=== PATIENT | male | born 1990 | race African-American/Black ===

== ENCOUNTER 2017-06-09 18:20 | Observation (INO) | payer OTHER ==
[~2017-06-09] VITALS: Ht 167.6 cm; Wt 71.7 kg
[2017-06-09 18:50] LABS: HEMATOCRIT 45.9 % (38.0-50.0); MCH 28.7 PG (29.0-34.0); MCHC 34.4 G/DL (30.0-36.0); MCV 83.3 FL (86-99); MEAN PLAT.VOLUME 8.7 uM^3 (9.0-12.4); PLATELET COUNT 209 K/uL (156-360); RBC DIS.WIDTH-CV 11.8 % (11.8-14.6); RBC DIS.WIDTH-SD 35.7 % (39-53); RED BLOOD COUNT 5.51 M/uL (4.00-5.50)
[2017-06-09 18:58] LABS: CHLORIDE 105 mEq/L (99-109); POTASSIUM 3.4 mEq/L (3.7-5.4); SODIUM 140 mEq/L (136-147)
[2017-06-09 18:59] LABS: GLUCOSE 132 mg/dL (70-99)
[2017-06-09 19:01] LABS: ANION GAP 14 MEQ/L (2-14)
[2017-06-09 19:04] LABS: UREA NITROGEN (BUN) 11 mg/dL (9-23)
[2017-06-09 19:05] LABS: GFR ESTIMATE (CALCULATED) > 59 mL/min/
[2017-06-09 19:12] LABS: TROP-I INTERPRETATION NEGATIVE; TROPONIN-I < 0.01 ng/mL (0.0-0.30)
[2017-06-09 20:17] LABS: ERTH.SED.RATE 9 MM/HR (0-15)
[2017-06-10 01:55] VITALS: BP 117/60
[2017-06-10 02:19] LABS: D-DIMER ELISA < 150.00 ng/mLDDU (<230)
[2017-06-10 04:13] LABS: ADD MIUA? NO; BILIRUBIN NEGATIVE; BLOOD NEGATIVE; COLOR STRAW ((YELLOW)); GLUCOSE (STRIP) >=500; KETONES NEGATIVE; LEUKOCYTES NEGATIVE; NITRITE NEGATIVE; PROTEIN (STRIP) NEGATIVE; SPECIFIC GRAVITY 1.013 (1.000-1.030); UROBILINOGEN 0.2 MG/DL (0.2-1.0)
[2017-06-10 04:22] LABS: AMPHETAMINES QUANT VALUE 0 NG/ML; BARBITUATES QUANT VALUE 0 NG/ML; BENZODIAZEPINES QUANT VALUE 0 NG/ML; BENZODIAZEPINES, URINE SCREEN Negative (200 ng/mL); MARIJUANA QUANT VALUE 0 NG/ML; OPIATES QUANTITATIVE VALUE 0 NG/ML; PHENCYCLIDINE QUANT VALUE 0 NG/ML
[2017-06-10 06:23] LABS: UCUL ADDED? NO
[2017-06-10 06:43] LABS: TROP-I INTERPRETATION NEGATIVE; TROPONIN-I 0.01 ng/mL (0.0-0.30)
[2017-06-10 08:42] VITALS: BP 116/59
[2017-06-10] MEDS ORDERED: FAMOTIDINE20 MG PO (13:08)
[2017-06-10] MEDS ORDERED: INDOCIN25 MG PO (13:08)
[2017-06-10 13:24] LABS: TROP-I INTERPRETATION NEGATIVE; TROPONIN-I < 0.01 ng/mL (0.0-0.30)
== END 2017-06-10 15:16 ==
LOC: EME 18:20 → 5WEST 23:40 → EDOF 23:40 → ENRESERV 23:41 → 5WEST 06-10 01:33
PROVIDERS: Emergency Medicine; Hospitalist; Internal Medicine
DX: R07.9 Chest pain, unspecified (principal); I31.9 Disease of pericardium, unspecified; R74.0 Nonspecific elevation of levels of transaminase and lactic acid dehydrogenase [LDH]; Z85.6 Personal history of leukemia; Z92.21 Personal history of antineoplastic chemotherapy; F17.210 Nicotine dependence, cigarettes, uncomplicated; Z82.5 Family history of asthma and other chronic lower respiratory diseases
CPT/HCPCS: 71010; 80048; 80306 90; 81003; 83605; 84484; 85027; 85379; 85651; 87040; 93005; 93306; 99281; 99285; G0378; J1644; J7030; J7512